=== PATIENT | female | born 1960 | race Caucasian/White ===

== ENCOUNTER 2020-11-29 20:49 | Emergency (ER) | payer OTHER ==
[2020-11-29 21:52] LABS: RED BLOOD COUNT 3.05 M/UL (4.00-5.10); WHITE BLOOD COUNT 5.8 K/UL (4.5-11.0)
[2020-11-29 22:12] LABS: BUN/CREATININE RATIO 23 (0-10)
== END 2020-11-30 03:54 | disposition home or self-care (01) ==
LOC: ER1 20:49
PROVIDERS: Family Medicine
DX: S70.02XA Contusion of left hip, initial encounter (principal); D64.9 Anemia, unspecified; I10 Essential (primary) hypertension; M79.602 Pain in left arm; W18.00XA Striking against unspecified object with subsequent fall, initial encounter; Y92.009 Unspecified place in unspecified non-institutional (private) residence as the place of occurrence of the external cause
CPT/HCPCS: 71045; 72192; 73060; 73552; 80053; 82550; 82553; 83874; 84484; 85025; 85610; 93005; 99284